=== PATIENT | female | born 1995 | race Caucasian/White ===

== ENCOUNTER 2019-10-04 10:34 | Outpatient (CLI) | payer OTHER, SELFPAY ==
[2019-10-04 11:27] LABS: Basophils Percent Auto 0.6 % (0.2-1.2); Eosinophils Absolute Auto 0.1 K/mm3 (0-0.3); Eosinophils Percent Auto 1.5 % (0-4.4); Hemoglobin 12.7 g/dL (12.0-15.0); Immature Granulocyte Absolute 0.01 K/mm3 (0.00-0.031); Immature Granulocyte Percent A 0.2 % (0-0.5); Lymphocytes Absolute Auto 1.77 K/mm3 (0.9-3.2); Lymphocytes Percent Auto 33.4 % (18.3-44.2); Mean Corpuscular HGB Conc 33.4 g/dl (32-36); Mean Corpuscular Hemoglobin 30.5 pg (26-34); Mean Corpuscular Volume 91.1 fl (80-100); Mean Platelet Volume 11.6 fl (7.4-10.4); Monocytes Absolute Auto 0.5 K/mm3 (0.1-0.6); Monocytes Percent Auto 8.9 % (2.6-8.5); Neutrophils Absolute Auto 2.9 K/mm3 (1.3-6.7); Neutrophils Percent Auto 55.4 % (45.5-73.1); Platelet Count Result 302 k/mm3 (150-375); Red Blood Count 4.17 M/mm3 (4.2-5.4); Red Cell Distribution Width 12.4 % (11.5-14.5); White Blood Count 5.3 K/mm3 (4.5-10.0)
[2019-10-04 11:44] LABS: Alanine Aminotransferase 18 U/L (4-35); Albumin Level 4.7 g/dL (3.5-5.1); Alkaline Phosphatase 46 U/L (38-126); Aspartate Amino Transferase 26 U/L (14-36); Bilirubin,Total 0.5 mg/dL (0.2-1.3); Blood Urea Nitrogen 12 mg/dL (7-17); Calcium 9.3 mg/dL (8.4-10.2); Carbon Dioxide 29 mmol/L (22-30); Chloride 101 mmol/L (98-107); Estimated Glomerular Filt Rate > 60; Glucose 80 mg/dL (65-105); Magnesium 1.7 mg/dL (1.6-2.3); Sodium 139 mmol/L (137-145)
== END 2019-10-04 10:35 | disposition home or self-care (01) ==
LOC: ANHLAB 10:36
PROVIDERS: PCP Family Medicine; Visit Provider Internal Medicine Cardiovascular Disease
DX: E78.5 Hyperlipidemia, unspecified (principal)
CPT/HCPCS: 36415; 80053; 83735; 84443; 85025

== ENCOUNTER 2020-09-17 11:56 | Outpatient (CLI) | payer OTHER, SELFPAY ==
--- NOTE | ~2020-09-17 | XR_ITS ---
EXAMINATION: XR ankle LT 2V DATE: 09/17/2020 12:22 INDICATION: Left ankle pain TECHNIQUE: Two views of the left ankle are obtained. COMPARISON: None. FINDINGS: There is no fracture, dislocation, or subluxation. The bones, soft tissues, and joint space s are normal. IMPRESSION: 1. No acute osseous abnormality. Reviewed, dictated and finalized at location A. SIZE PICKER
== END 2020-09-17 11:57 | disposition home or self-care (01) ==
PROVIDERS: PCP Nurse Practitioner Family; Visit Provider Nurse Practitioner Family
DX: S99.912A Unspecified injury of left ankle, initial encounter (principal)
CPT/HCPCS: 73600

== ENCOUNTER 2023-02-16 15:07 | Outpatient (CLI) | payer OTHER, SELFPAY ==
--- NOTE | ~2023-02-16 | US_ITS ---
EXAMINATION: US transvaginal DATE: 02/16/2023 15:52 INDICATION: Right lower quadrant TECHNIQUE: Multiple endovaginal sonographic images of the pelvis were obtained. COMPARISON: None. FINDINGS: The uterus measures 8.2 x 4.6 x 3.9 cm. The endometrial complex measures 5 mm. An IUD is pr esent in expected position. There is a 5.5 x 3.5 x 4.4 cm right adnexal mass isoechoic to the myometr ium which demonstrates areas of internal flow. The left ovary measures 2.2 x 1.7 x 1.6 cm. There is v ascular flow in the left ovary. There is a small volume of free fluid in the pelvis. IMPRESSION: 1. Right adnexal mass isoechoic to myometrium with the detectable internal flow. Finding could reflec t an enlarged right ovary or possibly a uterine fibroid. In the latter case, the right ovary is not v isualized and torsion would not be excluded. Recommend further management based on clinical suspicion for torsion. Consider follow-up MRI without and with contrast. Reviewed, dictated and finalized at location L. IMPRESSION: 1. Right adnexal mass isoechoic to myometrium with the detectable internal flow . Finding could reflect an enlarged right ovary or possibly a uterine fibroid. In the latter case, the right ovary is not visualized and torsion would not be excluded. Recommend further management based on clinical suspicion for torsion. Consider follow-up MRI without and with contrast.
== END 2023-02-16 15:08 | disposition home or self-care (01) ==
PROVIDERS: Referring Provider Obstetrics & Gynecology
DX: N83.511 Torsion of right ovary and ovarian pedicle (principal)
CPT/HCPCS: 76830

== ENCOUNTER 2023-02-16 16:38 | Emergency (ER) | payer OTHER, SELFPAY ==
[2023-02-16 16:52] VITALS: BP 148/92; PULSE 105; RESP 20; TEMP 37.6; O2SAT 98
--- NOTE | 2023-02-16 16:54 | ED.ABDPAIN ---
HPI - Abdominal Pain General Chief Complaint: Abdominal Pain Stated Complaint: r ovarian torsion Time Seen by Provider: 02/16/23 16:42 Source: patient Mode of arrival: ambulatory Limitations: no limitations History of Present Illness HPI narrative: This is a 27 year old female that presents to the ER for right lower quadrant pain which started 3 days ago. Reports the pain is constant and sharp. The pain acutely worsened today which prompted her to be seen. She had a CT abdomen/pelvis performed at an outside hospital which showed an adnexal cyst. She then has an US performed here which showed once again the cyst and possible ovarian torsion. She was prompted to be seen in the ER for further evaluation. Reports some nausea with the pain. Her computer numeric control setter is Dr. Onofre. Denies fever, vomiting, dysuria or hematuria. Related Data Home Medications Medication Instructions Recorded Confirmed levonorgestrel 21 mcg/24 hours (8 1 device intrauterine ONCE 07/04/19 12/02/21 yrs) 52 mg intrauterine device (Mirena) Allergies Allergy/AdvReac Type Severity Reaction Status Date / Time No Known Allergies Allergy Verified 02/16/23 16:39 Review of Systems Review of Systems: CONSTITUTIONAL: Denies fever GASTROINTESTINAL: Reports abdominal pain, nausea. Denies vomiting, or diarrhea. GENITOURINARY: Denies dysuria or hematuria. All systems reviewed & are unremarkable except as noted in HPI and below PMFSH Past Medical History Medical History (Updated 02/16/23 @ 17:44 by Jess Gallardo PA-C) Anemia IUD surveillance Surgical History Surgical History Previous section Family History Family History Grandparent Hypertension Family history of elevated blood lipids Family history of coronary artery disease Diabetes mellitus Family history of malignant neoplasm of male breast Father Family history of diabetes mellitus in first degree relative Mother Family history of type 2 diabetes mellitus Father Hypertension Family history of type 2 diabetes mellitus Social History Social History Smoking status: Never smoker Second hand tobacco smoke exposure: No Alcohol intake: current Alcohol use details: Social Basis only. Substance use: never Living arrangements: with family Additional living arrangements comments: . 2 Children. Occupation/Education: occupation Additional occupation/education comments: Nurse Gender identity (if verbalized by the patient): Female Exam Narrative: GENERAL: Well-appearing, well-nourished, and in no acute distress. HEAD: Normocephalic, atraumatic. EYES: EOMI. CHEST: Clear to auscultation. No respiratory distress. No wheezes rales or rhonchi HEART: Regular rate and rhythm. No murmur heard. Normal peripheral pulses. ABDOMEN: Soft, nondistended, normal active bowel sounds. Tender to palpation throughout the abdomen, largely in the right lower quadrant. No guarding. No CVA tenderness EXTREMITIES: Normal range of motion. No edema. SKIN: Warm, dry, no rash. NEURO: No focal deficits. Alert and oriented x3. PSYCH: Normal mood and affect Course Course Emergency Course: Patient and family updated on work-up and discussion with Dr. Arteaga. She would like to go home and monitor her pain over the next couple of days and follow-up with her doctor in clinic. She also spoke with Dr. Onofre on the phone who agrees with the plan Consultations Consultation #1: Spoke with Dr. Arteaga about patient and workup. Patient will be given the choice of discharge home and monitoring pain the next couple of days vs admission for pelvic laparoscopy Date: 02/16/23 Vital Signs Vital signs: Vital Signs Temperature 99.6 F 02/16/23 16:52 Pulse Rate 105 H 02/16/23 16:52 Respiratory Rat
[2023-02-16 17:18] LABS: Basophils Percent Auto 0.6 % (0.2-1.2); Eosinophils Absolute Auto 0.1 K/mm3 (0-0.3); Hematocrit 36.6 % (37.0-47.0); Hemoglobin 12.5 g/dL (12.0-15.0); Immature Granulocyte Absolute 0.03 K/mm3 (0.00-0.031); Immature Granulocyte Percent A 0.4 % (0-0.5); Lymphocytes Absolute Auto 1.86 K/mm3 (0.9-3.2); Lymphocytes Percent Auto 26.5 % (18.3-44.2); Mean Corpuscular HGB Conc 34.2 g/dl (32-36); Mean Corpuscular Hemoglobin 31.5 pg (26-34); Mean Corpuscular Volume 92.2 fl (80-100); Mean Platelet Volume 10.6 fl (7.4-10.4); Monocytes Absolute Auto 0.6 K/mm3 (0.1-0.6); Neutrophils Absolute Auto 4.5 K/mm3 (1.3-6.7); Neutrophils Percent Auto 63.5 % (45.5-73.1); Platelet Count Result 309 k/mm3 (150-375); Red Blood Count 3.97 M/mm3 (4.2-5.4); Red Cell Distribution Width 12.8 % (11.5-14.5)
[2023-02-16 17:29] LABS: Alanine Aminotransferase 20 U/L (6-35); Alkaline Phosphatase 53 U/L (38-126); Anion Gap 11 mmol/L (8-16); Aspartate Amino Transferase 25 U/L (14-36); Bilirubin,Total 0.6 mg/dL (0.2-1.3); Blood Urea Nitrogen 8 mg/dL (7-17); Calcium 9.3 mg/dL (8.4-10.2); Carbon Dioxide 20 mmol/L (22-30); Chloride 107 mmol/L (98-107); Estimated CRCL calculation 87 ml/min; Estimated Glomerular Filt Rate > 60; Glucose 94 mg/dL (65-110); Potassium 3.5 mmol/L (3.4-5.0); Sodium 138 mmol/L (137-145)
[2023-02-16 17:57] VITALS: BP 107/68; PULSE 82; RESP 16; O2SAT 100
== END 2023-02-16 17:59 | disposition home or self-care (01) ==
PROVIDERS: Emergency Provider Physician Assistant
DX: R19.09 Other intra-abdominal and pelvic swelling, mass and lump (principal); D64.9 Anemia, unspecified
CPT/HCPCS: 36415; 80053; 81025; 85025; 99283

== ENCOUNTER → 2023-04-27 15:04 | Outpatient (CLI) | payer OTHER, SELFPAY ==
--- NOTE | ~2023-04-27 | US_ITS ---
EXAMINATION: US pelvic complete w TV DATE: 04/27/2023 15:42 INDICATION: Ovarian cyst Comparison: TECHNIQUE: Multiple transabdominal and endovaginal sonographic images of the pelvis performed. FINDINGS: The uterus measures 7.3 x 3.5 x 4.6 cm. There is an IUD present in the endometrium. The end ometrial complex measures 4 mm. The right ovary measures 4.4 x 2.2 x 3.3 cm and the left ovary measures 2.4 x 1.1 x 2 cm. There is a right ovarian cyst measuring 2.9 cm. There are small follicles in each ovary. Normal doppler signal i n both ovaries. There is no free fluid in the pelvis. There are no abnormal masses seen on either side. IMPRESSION: 1. Right ovarian cyst measuring 2.9 cm. Reviewed, dictated and finalized at location A.
== END ==
PROVIDERS: PCP Obstetrics & Gynecology; Visit Provider Obstetrics & Gynecology
DX: N83.201 Unspecified ovarian cyst, right side (principal)
CPT/HCPCS: 76830; 76856

== ENCOUNTER 2023-04-28 14:16 | Outpatient (CLI) | payer OTHER, SELFPAY ==
[2023-04-28 15:45] LABS: Thyroid Stimulating Hormone 0.928 uIU/mL (0.465-4.680)
== END 2023-04-28 14:17 | disposition home or self-care (01) ==
LOC: ANHLAB 14:17
PROVIDERS: PCP Obstetrics & Gynecology; Visit Provider Obstetrics & Gynecology
DX: E04.9 Nontoxic goiter, unspecified (principal)
CPT/HCPCS: 36415; 84436; 84443

== ENCOUNTER → 2023-05-11 07:43 | Outpatient (CLI) | payer OTHER, SELFPAY ==
--- NOTE | ~2023-05-11 | US_ITS ---
EXAMINATION: US thyroid DATE: 05/11/2023 08:09 INDICATION: Goiter, nontoxic. TECHNIQUE: Multiple ultrasound images of the thyroid were obtained. COMPARISON: None. FINDINGS: The right thyroid lobe measures 5.0 x 1.2 x 1.8 cm. The left thyroid lobe measures 5.1 x 1.9 x 1.5 c m. There is normal echotexture and echogenicity throughout the thyroid gland. No discrete nodules id entified. Normal vascular flow is present. IMPRESSION: 1. Normal thyroid. Reviewed, dictated and finalized at location E. IMPRESSION: 1. Normal thyroid.
== END ==
PROVIDERS: PCP Obstetrics & Gynecology; Visit Provider Obstetrics & Gynecology
DX: E04.9 Nontoxic goiter, unspecified (principal)
CPT/HCPCS: 76536

== ENCOUNTER 2023-09-26 17:19 | Emergency (ER) | payer OTHER, SELFPAY ==
[2023-09-26 17:22] VITALS: BP 119/77; PULSE 61; RESP 18; TEMP 36.7; O2SAT 100
--- NOTE | 2023-09-26 18:00 | ED.GENADULT ---
HPI - General Adult General Chief complaint: Wound/Laceration Stated complaint: laceration Time Seen by Provider: 09/26/23 17:29 Source: patient Mode of arrival: ambulatory Limitations: no limitations History of Present Illness HPI narrative: This is a 28-year-old female who presents to the ED with chief complaint of laceration injury that occurred just prior to arrival. Reports she cut the tip of the left thumb while preparing dinner. Recently got a new knife set and accidentally sliced her finger with the knife. Denies any further sites of pain or injury. Denies numbness or weakness. Related Data Home Medications Medication Instructions Recorded Confirmed levonorgestrel 21 mcg/24 hours (8 1 device intrauterine ONCE 07/04/19 04/28/23 yrs) 52 mg intrauterine device (Mirena) bupropion HCl 150 mg tablet,12 hr 150 mg PO BID 02/23/23 04/28/23 sustained-release (Wellbutrin SR) Allergies Allergy/AdvReac Type Severity Reaction Status Date / Time No Known Allergies Allergy Verified 04/28/23 13:19 Review of Systems Review of Systems: All systems as dictated in [facility] Past Medical History Medical History (Updated 09/26/23 @ 18:04 by Adam Caal PA-C) Anemia IUD surveillance Surgical History Surgical History Previous section Family History Family History Grandparent Hypertension Family history of elevated blood lipids Family history of coronary artery disease Diabetes mellitus Family history of malignant neoplasm of male breast Father Family history of diabetes mellitus in first degree relative Mother Family history of type 2 diabetes mellitus Father Hypertension Family history of type 2 diabetes mellitus Social History Social History Smoking status: Never smoker Second hand tobacco smoke exposure: No Alcohol intake: current Alcohol use details: Social Basis only. Substance use: never Lack of Transportation: No Lack of Food: Never True Current Housing: I Have Housing Concerned About Future Housing: No Difficulty Paying Gas/Electric Bills: No Difficulty Paying for Meds: No Currently Unemployed: No Education: Master's Degree or Higher Difficulty w/ Childcare or Family Care: No Living arrangements: with family Additional living arrangements comments: . 2 Children. Occupation/Education: occupation Additional occupation/education comments: Nurse Gender identity (if verbalized by the patient): Female Exam Narrative: GENERAL: Well-appearing, well-nourished, and in no acute distress. HEAD: Normocephalic, atraumatic. MSK: Normal range of motion. No edema. SKIN: Left great thumb distal tip avulsion injury. There is a 1 cm of avulsion to the skin. There is a minor 0.5 cm laceration to the distal tip of the thumbnail. NEURO: Alert and oriented x3. No focal deficits. PSYCH: Normal mood and affect. Course Vital Signs Vital signs: Vital Signs Temperature 98.0 F 09/26/23 17:22 Pulse Rate 61 09/26/23 17:22 Respiratory Rate 18 09/26/23 17:22 Blood Pressure 119/77 09/26/23 17:22 Pulse Oximetry 100 09/26/23 17:22 Oxygen Delivery Room Air 09/26/23 17:22 Temperature 98.0 F 09/26/23 17:22 Pulse Rate 61 09/26/23 17:22 Respiratory Rate 18 09/26/23 17:22 Blood Pressure 119/77 09/26/23 17:22 Pulse Oximetry 100 09/26/23 17:22 Oxygen Delivery Room Air 09/26/23 17:22 Procedures Laceration Laceration 1: Date: 09/26/23 Time: 17:35 Site: hand (thumb) Side (If applicable): left Size (cm): 1.5 Description: linear Depth: simple, single layer Local Anesthetic: none Pre-repair: wound explored and irrigated extensively ====== Skin Level ======
== END 2023-09-26 18:23 | disposition home or self-care (01) ==
LOC: ANHED 18:04
PROVIDERS: Emergency Provider Physician Assistant; PCP Obstetrics & Gynecology
DX: S61.012A Laceration without foreign body of left thumb without damage to nail, initial encounter (principal); Z86.2 Personal history of diseases of the blood and blood-forming organs and certain disorders involving the immune mechanism; Z97.5 Presence of (intrauterine) contraceptive device; W26.0XXA Contact with knife, initial encounter; Y93.G1 Activity, food preparation and clean up
CPT/HCPCS: 12001; 99282

== ENCOUNTER 2024-07-18 07:39 | Outpatient (CLI) | payer OTHER, SELFPAY ==
--- NOTE | 2024-07-18 07:43 | ECHO_ITS ---
Patient Info Name: Katy Obando Age: 28 years : 1995 Gender: Female Ht: 67 in Wt: 140 lbs BSA: 1.73 m2 HR: 49 bpm BP: 122 / 77 mmHg Technical Quality: Good Exam Date: 07/18/2024 8:01 AM Exam Location: Echo Lab Patient Status: Outpatient Admit Date: 07/18/2024 Staff Ordering Physician: Michael Santiago DO Furnace Keeper: Fernanda Mendez RDCS Attending Provider: Michael Santiago DO Referring Physician: Jack MUHAMMAD; Exam Type: CA echo doppler color flow Study Info Indications R07.9 - Chest pain, unspecified Complete two-dimensional, color flow and Doppler transthoracic echocardiogram is performed. Strain analysis performed. Summary 1. Complete two-dimensional, color flow and Doppler transthoracic echocardiogram is performed. 2. Left ventricular chamber dimension is normal. 3. Left ventricular systolic function is normal, estimated at 60-65%. 4. The left ventricular diastolic function is normal. 5. E/e' 5 is not elevated. 6. Global longitudinal strain is normal at -20.2%. 7. There is mild aortic valve sclerosis. 8. There is mild mitral valve regurgitation. 9. There is mild tricuspid valve regurgitation. 10. No pulmonary hypertension, estimated pulmonary arterial systolic pressure is 34 mmHg. 11. Dilated inferior vena cava with >50% collapse upon inspiration consistent with elevated right atrial pressure, 10 mmHg. Left Ventricle E/e' 5 is not elevated. Global longitudinal strain is normal at -20.2%. Left ventricular chamber dimension is normal. Left ventricular systolic function is normal, estimated at 60-65%. The left ventricular diastolic function is normal. Right Ventricle Right ventricular systolic function is normal and with normal TAPSE 2.7 cm. Right ventricular chamber dimension is normal. Left Atria Left atrial chamber dimension is normal. Right Atria Right atrial chamber dimension is normal. Aortic Valve The aortic valve is trileaflet. There is mild aortic valve sclerosis. There is no aortic valve stenosis. There is no aortic valve regurgitation. Pulmonic Valve There is no pulmonic regurgitation. Mitral Valve There is no mitral valve stenosis. There is mild mitral valve regurgitation. Tricuspid Valve There is mild tricuspid valve regurgitation. No pulmonary hypertension, estimated pulmonary arterial systolic pressure is 34 mmHg. Pericardium/Pleural There is no pericardial effusion. Inferior Vena Cava Dilated inferior vena cava with >50% collapse upon inspiration consistent with elevated right atrial pressure, 10 mmHg. Aorta The aortic root size at the sinus of Valsalva is normal. Left Ventricular Outflow Tract Name Value Normal LVOT 2D LVOT Diameter 2.0 cm LVOT Doppler LVOT Peak Gradient 5 mmHg LVOT Mean Gradient 3 mmHg LVOT VTI 25 cm LVOT VTI/AV VTI Ratio 0.9 LVOT Stroke Volume 82 ml LVOT CO 4.1 l/min LVOT CI 2.4 l/min/m2 Pulmonic Valve Name Value Normal RVOT Doppler RVOT Peak Gradient 1 mmHg PV Doppler PV Peak Gradient 3 mmHg Mitral Valve Name Value Normal MV Doppler MV Decel Bates 507 cm/s2 MV PHT 56 ms MV Area (PHT) 3.9 cm2 4.0-5.0 MV Regurgitation Doppler MR Peak Gradient 103 mmHg MV Diastolic Function MV E Peak Velocity 99 cm/s MV A Peak Velocity 49 cm/s MV E/A 2.0 MV Decel Time 195 ms Tricuspid Valve Name Value Normal TV Regurgitation Doppler TR Peak Velocity 246 cm/s TR Peak Gradient 24 mmHg Estimated PAP/RSVP RA Pressure 10 mmHg <=5 PA Systolic Pressure 34 mmHg <36 RV Systolic Pressure 34 mmHg <36 Aorta Name Value Normal Ascending Aorta Ao Root Diameter (MM) 2.8 cm Ao Root Diam Index (MM) 1.6 cm/m2 Aortic Valve Name Value Normal AV Doppler AV Peak Velocity 134 cm/s AV Peak Gradient 7 mmHg AV Mean Gradient 3 mmHg AV VTI 27 cm AV Area (Cont Eq VTI) 3.0 cm2 >=3.0 AV Area (Cont Eq Daniel) 2.8 cm2 AV Regurgitation 2D LVOT Area 3.2 cm2 Ventricles Name Value Normal LV Dimensions 2D/MM IVS Diastolic Thickness (2D) 1.0 cm 0.6-1.0 IVS Diastole Thickness (MM) 0.7 cm 0.6-0.9 LVID Diastole (2D) 4.2 cm 3.8-5.2 LVID Diastole (MM) 4.7 cm 3.8-5.2 LVIW Diastolic Thickness (2D) 0.8 cm 0.6-0.9 LVIW Diastolic Thickness (MM) 0.7 cm 0.6-0.9 LVID Systole (2D) 2.9 cm 2.2-3.5 LVID Systole (MM) 3.2 cm 2.2-3.5 LVOT Diameter 2.0 cm LV Mass (2D Cubed) 119.83 g 67.00-162.00 LV Mass Index (2D Cubed) 69 g/m2 43-95 Relative Wall Thickness (2D) 0.40 LV Mass (MM Cubed) 109.35 g 67.00-162.00 LV Mass Index (MM Cubed) 63 g/m2 43-95 Relative Wall Thickness (MM) 0.31 LV Fractional Shortening/Ejection Fraction 2D/MM LV Fractional Shortening (2D) 32 % 27-45 LV Fractional Shortening (MM) 31 % 27-45 LV EF (MM Teicholz) 59 % 54-74 LV EF (2D Teicholz) 60 % 54-74 LV Diastolic Volume (4C MOD) 85 ml LV EF (4C MOD) 62 % LV Diastolic Volume (2C MOD) 89 ml LV EF (2C MOD) 67 % LV Diastolic Volume (BP MOD) 86 ml 46-106 LV Diastolic Volume Index (BP MOD) 50 ml/m2 29-61 LV Systolic Volume (BP MOD) 33 ml 14-42 LV Systolic Volume Index (BP MOD) 19 ml/m2 8-24 LV EF (BP MOD) 62 % 54-74 LV Diastolic Length (4C) 8.8 cm LV Systolic Length (4C) 6.1 cm LV Stroke Volume (4C MOD) 53 ml Atria Name Value Normal LA Dimensions LA Dimension (MM) 3.3 cm 2.7-3.8 LA Volume (4C A-L) 45 ml LA Volume (BP A-L) 44 ml RA Dimensions RA Area (4C) 14.8 cm2 <=18.0 EchoPAC Name Value Normal AutoEF LVCO_BiP_Q (Qguh1BOX) 2.7 l/min LVEF_BiP_Q (Kvki5TQJ) 62 % LVSV_BiP_Q (Zyfn9KDA) 58 ml LVVED_BiP_Q (Ckep8FBS) 92 ml LVVES_BiP_Q (Yzrd5ISX) 35 ml HR_4Ch_Q (Qqqa9FKX) 46 bpm LVCO_4Ch_Q (Lczy0DUG) 2.3 l/min LVEF_4Ch_Q (Gqwo6SNP) 63 % LVLd_4Ch_Q (Shcs5CMG) 8.8 cm LVLs_4Ch_Q (Qgef1SNO) 7.0 cm LVSV_4Ch_Q (Qjui0KJG) 50 ml LVVED_4Ch_Q (Zlqa0EPK) 80 ml LVVES_4Ch_Q (Twhl0VLM) 30 ml HR_2Ch_Q (Xkcr8KFN) 45 bpm LVCO_2Ch_Q (Vnvx7UEK) 3.0 l/min LVEF_2Ch_Q (Hjci3LKH) 62 % LVLd_2Ch_Q (Bunl5WNY) 8.7 cm LVLs_2Ch_Q (Jwou2MQM) 6.9 cm LVSV_2Ch_Q (Ublu6JLC) 67 ml LVVED_2Ch_Q (Fxcc8RJL) 106 ml LVVES_2Ch_Q (Obek5TMY) 40 ml EARLENE AA peak sys SL (AWMA) 22.8 % AAS peak sys SL (AWMA) 19.2 % AI peak sys SL (AWMA) 24.7 % AL peak sys SL (AWMA) 17.5 % AP peak sys SL (AWMA) 23.7 % peak sys SL (AWMA) 25.4 % AVC (AWMA) 429 ms BA peak sys SL (AWMA) 18.3 % BAS peak sys SL (AWMA) 15.3 % BI peak sys SL (AWMA) 20.3 % BL peak sys SL (AWMA) 24.2 % BP peak sys SL (AWMA) 21.2 % BS peak sys SL (AWMA) 14.1 % G peak SL(A2C) (AWMA) 21.1 % G peak SL(A4C) (AWMA) 21.8 % G peak SL(APLAX) (AWMA) 17.7 % G peak SL(Avg) (AWMA) 20.2 % MA peak sys SL (AWMA) 23.9 % MAS peak sys SL (AWMA) 15.5 % SD peak sys SL (AWMA) 21.8 % ML peak sys SL (AWMA) 25.3 % MP peak sys SL (AWMA) 15.4 % MS peak sys SL (AWMA) 24.1 % Report Signatures
--- NOTE | 2024-07-18 07:43 | EST_ITS ---
Patient Info Name: Katy Obando Age: 28 years : 1995 Gender: Female Ht: 67 in Wt: 140 lbs BSA: 1.73 m2 HR: 46 bpm BP: 115 / 65 mmHg Exam Date: 07/18/2024 8:37 AM Exam Location: Echo Lab Patient Status: Outpatient Admit Date: 07/18/2024 Staff Ordering Physician: iMchael Santiago DO Attending Provider: Michael Santiago DO Exercise Technologist: Anh Zuñiga RDCS Exercise Physician: Michael Santiago DO Exam Type: CA stress test treadmill Study Info A treadmill exercise stress test was performed. Summary 1. 1. Negative [place] exercise stress test for ischemic ST changes by ECG criteria. 2. 2. Good functional capacity, achieving 12 METs of workload. 3. 3. Appropriate HR response to exercise. 4. 4. Appropriate HR recovery at 1 minute post exercise. 5. 5. No imaging with stress testing. 6. 6. Patient informed of the above results. Protocol: [place] Stress ECG Details Stage: REST Duration (min): 1 min : 36 sec Speed (mph): 0.0 Grade (%): 0 HR (bpm): 48 SBP (mmHg): 115 DBP (mmHg): 65 METS: --- Stage: REST Duration (min): 6 min : 59 sec Speed (mph): 0.0 Grade (%): 0 HR (bpm): 65 SBP (mmHg): 115 DBP (mmHg): 65 METS: --- Stage: STAGE 1 Duration (min): 1 min : 0 sec Speed (mph): 1.7 Grade (%): 10 HR (bpm): 87 SBP (mmHg): 115 DBP (mmHg): 65 METS: --- Stage: STAGE 1 Duration (min): 2 min : 0 sec Speed (mph): 1.7 Grade (%): 10 HR (bpm): 92 SBP (mmHg): 115 DBP (mmHg): 65 METS: --- Stage: STAGE 1 Duration (min): 3 min : 0 sec Speed (mph): 1.7 Grade (%): 10 HR (bpm): 88 SBP (mmHg): 129 DBP (mmHg): 69 METS: --- Stage: STAGE 2 Duration (min): 1 min : 0 sec Speed (mph): 2.5 Grade (%): 12 HR (bpm): 102 SBP (mmHg): 129 DBP (mmHg): 69 METS: --- Stage: STAGE 2 Duration (min): 2 min : 0 sec Speed (mph): 2.5 Grade (%): 12 HR (bpm): 109 SBP (mmHg): 127 DBP (mmHg): 67 METS: --- Stage: STAGE 2 Duration (min): 3 min : 0 sec Speed (mph): 2.5 Grade (%): 12 HR (bpm): 110 SBP (mmHg): 127 DBP (mmHg): 67 METS: --- Stage: STAGE 3 Duration (min): 1 min : 0 sec Speed (mph): 3.4 Grade (%): 14 HR (bpm): 132 SBP (mmHg): 134 DBP (mmHg): 68 METS: --- Stage: STAGE 3 Duration (min): 2 min : 0 sec Speed (mph): 3.4 Grade (%): 14 HR (bpm): 138 SBP (mmHg): 134 DBP (mmHg): 68 METS: --- Stage: STAGE 3 Duration (min): 3 min : 0 sec Speed (mph): 3.4 Grade (%): 14 HR (bpm): 146 SBP (mmHg): 145 DBP (mmHg): 71 METS: --- Stage: STAGE 4 Duration (min): 1 min : 0 sec Speed (mph): 4.2 Grade (%): 16 HR (bpm): 158 SBP (mmHg): 145 DBP (mmHg): 71 METS: --- Stage: STAGE 4 Duration (min): 2 min : 0 sec Speed (mph): 4.2 Grade (%): 16 HR (bpm): 166 SBP (mmHg): 176 DBP (mmHg): 55 METS: --- Stage: STAGE 4 Duration (min): 3 min : 0 sec Speed (mph): 4.2 Grade (%): 16 HR (bpm): 168 SBP (mmHg): 176 DBP (mmHg): 55 METS: --- Stage: STAGE 5 Duration (min): 0 min : 1 sec Speed (mph): 5.0 Grade (%): 18 HR (bpm): 168 SBP (mmHg): 176 DBP (mmHg): 55 METS: --- Stage: RECOVERY Duration (min): 0 min : 59 sec Speed (mph): 0.0 Grade (%): 0 HR (bpm): 134 SBP (mmHg): 173 DBP (mmHg): 88 METS: --- Stage: RECOVERY Duration (min): 1 min : 59 sec Speed (mph): 0.0 Grade (%): 0 HR (bpm): 110 SBP (mmHg): 173 DBP (mmHg): 88 METS: --- Stage: RECOVERY Duration (min): 2 min : 59 sec Speed (mph): 0.0 Grade (%): 0 HR (bpm): 89 SBP (mmHg): 145 DBP (mmHg): 87 METS: --- Stage: RECOVERY Duration (min): 3 min : 34 sec Speed (mph): 0.0 Grade (%): 0 HR (bpm): 71 SBP (mmHg): 145 DBP (mmHg): 87 METS: --- Rest HR: 65 bpm Peak HR: 171 bpm Rest Sys BP: 115 mmHg Peak Sys BP: 176 mmHg Max Pred HR: 190 bpm % Max Pred HR: 90 % Target HR: 162 bpm Max RPP: 30,096 bpm*mmHg Skaggs Score: 3 Termination Reason: Reached target heart rate or workload Cardiac Symptoms: Shortness of breath Max ST Seg Deviation: 1.80 mm Total Time: 12 min : 1 sec Rest Riggins BP: 65 mmHg Peak Riggins BP: 55 mmHg Angina Score: None Total METS: 12.1 Resting ECG Sinus rhythm, IRBBB. Stress ECG No ST changes. Arrhythmias None. Report Signatures
== END 2024-07-18 07:40 | disposition home or self-care (01) ==
LOC: ANHCARD 07:42
PROVIDERS: PCP Family Medicine; Visit Provider Internal Medicine Cardiovascular Disease
DX: R07.9 Chest pain, unspecified (principal); I36.1 Nonrheumatic tricuspid (valve) insufficiency; I35.1 Nonrheumatic aortic (valve) insufficiency
CPT/HCPCS: 93017; 93306

== ENCOUNTER 2024-12-01 08:16 | Outpatient (CLI) | payer OTHER, SELFPAY ==
--- OUTSIDE RECORDS SUMMARY | 2024-12-01 08:22 | XMS_ITS | Clinical Summary ---
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 OPTIONS PPO [id number] Care Teams Weld Fitter Relationship Specialty Start Date End Date Ruben Mann, SIOBHAN NO ADDRESS ON FILE PCP - General NURSE PRACTITIONER 10/03/18
[2024-12-01 09:17] LABS: Thyroid Stimulating Hormone Reflex 0.913 uIU/mL (0.465-4.68)
== END 2024-12-01 08:17 | disposition home or self-care (01) ==
LOC: ANHLAB 08:18
PROVIDERS: PCP Family Medicine; Visit Provider Nurse Practitioner Obstetrics & Gynecology
DX: N93.9 Abnormal uterine and vaginal bleeding, unspecified (principal)
CPT/HCPCS: 36415; 84146; 84443

== ENCOUNTER 2024-12-06 07:19 | Outpatient (CLI) | payer OTHER, SELFPAY ==
--- NOTE | ~2024-12-06 | US_ITS ---
Pelvic ultrasound. Clinical History: Abnormal uterine bleeding Technique: Realtime transabdominal and transvaginal scanning of the pelvis was performed. Color flow Doppler and Doppler spectral analysis were performed. Findings: The uterus is anteverted. The endometrial stripe has a thickness of 5 mm. IUD in satisfact ory position. No focal mass is identified. The right ovary measures 3.3 x 2.9 x 2.8 cm. Right ovarian cyst measures 2.4 cm in diameter. The left ovary measures 1.6 x 1.3 x 1.8 cm. No significant left ovarian or adnexal mass is seen. There is trace free fluid in the cul de sac. Impression: No significant abnormality. IUD in place. Reviewed, dictated and finalized at location . Impression: No significant abnormality. IUD in place.
--- OUTSIDE RECORDS SUMMARY | 2024-12-06 07:22 | XMS_ITS | Clinical Summary ---
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
== END 2024-12-06 07:20 | disposition home or self-care (01) ==
LOC: CHSIMG 07:21
PROVIDERS: PCP Family Medicine; Visit Provider Nurse Practitioner Obstetrics & Gynecology
DX: N93.9 Abnormal uterine and vaginal bleeding, unspecified (principal); Z97.5 Presence of (intrauterine) contraceptive device
CPT/HCPCS: 76830; 76856